=== PATIENT | male | born 1940 | race Caucasian/White ===

== ENCOUNTER → 2020-03-11 12:47 | Outpatient (BNVA) | payer MEDICARE, SELFPAY | PROVIDERS: PCP Internal Medicine; Visit Provider Hospitalist | DX: J98.11 Atelectasis (principal); J43.2 Centrilobular emphysema; J96.11 Chronic respiratory failure with hypoxia; R91.8 Other nonspecific abnormal finding of lung field | CPT/HCPCS: 99212 ==

== ENCOUNTER → 2020-10-10 14:11 | Outpatient (BNVA) | payer MEDICARE, SELFPAY | PROVIDERS: PCP Internal Medicine; Visit Provider Hospitalist | DX: J43.2 Centrilobular emphysema (principal); J98.11 Atelectasis; J96.11 Chronic respiratory failure with hypoxia; R91.8 Other nonspecific abnormal finding of lung field | CPT/HCPCS: 99212 ==

== ENCOUNTER → 2021-10-20 10:44 | Outpatient (BNVA) | payer MEDICARE, SELFPAY | PROVIDERS: PCP Internal Medicine; Visit Provider Hospitalist | DX: R91.8 Other nonspecific abnormal finding of lung field (principal); J96.11 Chronic respiratory failure with hypoxia; J98.11 Atelectasis; J43.2 Centrilobular emphysema | CPT/HCPCS: 99212 ==

== ENCOUNTER → 2022-05-27 09:51 | Outpatient (BNVA) | payer MEDICARE, SELFPAY | PROVIDERS: PCP Internal Medicine; Visit Provider Hospitalist | DX: J96.11 Chronic respiratory failure with hypoxia (principal); J43.2 Centrilobular emphysema; J98.11 Atelectasis; R91.8 Other nonspecific abnormal finding of lung field; Z87.891 Personal history of nicotine dependence; Z99.81 Dependence on supplemental oxygen | CPT/HCPCS: 99212 ==

== ENCOUNTER → 2022-08-26 13:06 | Outpatient (BNVA) | payer MEDICARE, SELFPAY | PROVIDERS: PCP Internal Medicine; Visit Provider Hospitalist | DX: J43.2 Centrilobular emphysema (principal); J98.11 Atelectasis; J96.11 Chronic respiratory failure with hypoxia; R91.8 Other nonspecific abnormal finding of lung field | CPT/HCPCS: 99212 ==

== ENCOUNTER 2023-04-07 12:27 | Outpatient (AMB) | payer MEDICARE, SELFPAY ==
--- NOTE | 2023-04-07 12:54 | A.OFFVIS_ITS ---
Intake Vital Signs 04/07/23 12:59 Height 6 ft Weight 195 lb BMI 26.4 BP 110/70 Blood Pressure Location Lt brachial Position Sitting Pulse 68 Pulse Oximetry (%) 89 L Oxygen Delivery Method Nasal Cannula Oxygen Flow Rate 2 Intake Visit Reasons: COPD Allergies vancomycin Allergy (Severe, Verified 08/26/22 13:19) Hearing HPI HPI Comments History of Present Illness Details The patient is a 82-year-old gentleman with known COPD with chronic respiratory failure on oxygen. He also has a history of aspiration pneumonia and some nodular changes primarily in the right base. Patient also has some interstitial lung disease active bases. His last CT scan of the chest was back in February 2018 which demonstrated findings stated above. Since we last spoke a finally get his portable oxygen concentrator. He is planning a trip to [place] at this time. 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 He denies any significant cough. He still having some issues with hoarseness due to his vocal cord paralysis. Has not had any issues with aspiration. In the meantime the patient continues to have some shortness of breath with activity. He continues his respiratory therapy as prescribed without any issues. Will plan to follow up in 6 months with [address] scan which should be 18 months from his prior. He did have a repeat CT scan of the chest that we personally reviewed sometime in July 2019. It demonstrates that it cavitary density appears to be stable in size when compared to 2019. Appears to have some increased interstitial changes at the bases. On examination he does have some crackles on the left base. Could be some atelectasis versus beginning of some pulmonary fibrosis. Will continue monitoring closely. 10/20/2021 the patient is here for a pulmonary follow-up visit. He has got the same. The patient has not had any lower respiratory infections. She continues to eat well without any evidence of any micro aspirations. This is a significant improvement for him. The patient continues on the Anoro. He takes a daily. Does not require her short-acting beta agonist. He does continue to uses oxygen. The portable oxygen concentrator has provided great portability outside of the home. He has provider better quality of life. in the meantime we did look at his last CT scan from 2020 which was compared to a CT scan from 2018 without any significant changes. Therefore based on the fact the patient is doing well will hold off on a CT scan this year and will have him get a chest x-ray. If his x-ray shows any worsening disease then I will go ahead and request a CT scan. Will try to hold off on further CT scans unless he has weaning worsening symptoms otherwise. 05/27/2022 the patient is here for a pulm onary follow-up visit. He was recently hospitalized at [facility] back in March. He had bilateral lower lobe pneumonia. He was also having acute on chronic hypoxic respiratory failure. She was treated with antibiotics. His sputum cultures were no growth today. His white count was indeed elevated. The patient was subsequently discharged. He continues uses oxygen. His oxygen has been dropping some but otherwise doing well. He did require rehabilitation prior to going home. The patient has been getting home PT at this time. We did review his last CT scan demonstrating bibasilar opacities and airspace disease right more than left. He has had history of aspiration pneumonia. His cough is also slightly above weeks I. He did have an Acapella valve at some point in the past but no longer available. At this point will going to focus on chest physical therapy by provide him a nebulizer and also provide him an Acapella valve in order for him to use at least once a day. He is also continue to use the oral daily. That is okay. He is going to monitor closely his oxygen. His if oxygen is not improving or getting worse he will call the office. Although I do have a repeat chest x-ray in a couple weeks. I did reassure the family that this will take at least a couple months to get better. 08/26/2022 the patient is here for a pulm onary follow-up visit. Overall the patient has been feeling better. He is back to his baseline oxygen. The patient was instructed to get stronger. He did get the nebulizer and also the Acapella valve although he has not been using it regularly. He does have some chest congestion right now on coughing. I explained to him the importance of mucus clearing. The patient also was aware that he needs to keep an eye on the color of the mucus thick consistency in the frequency of the mucus production. All these will be held till signs is she is developing an infection. Right now he has a baseline he did get his pneumonia shot which is very happy with. He is going to start performing his bronchopulmonary hygiene a little more regularly to help with mucus clearance. His last CT scan of the chest was back in March 2022. His chest x-ray in May demonstrated no acute disease. Therefore we will go ahead and repeat his CT scan in March 2019 for as long as doing well. 04/07/2023 the patient is here for a pulmo crisy follow-up visit. Overall the patient has been doing okay. The has been noticing he has been coughing more. He also is more hoarse. He has had issues with his vocal cord in the past. He went to [facility] and year and did have an intervention many years ago. Although at this point he has not planning to go back. The patient is monitoring closely his swallow specially with the vocal cord issue. The patient understands that he is high risk for aspiration. I did give him some instructions on swallowing techniques to minimize aspiration. The patient did have a CT scan of the chest that was personally by me. The patient does have a very stable looking right lower lobe cystic like lesion. Has not changed since 2020 and therefore this point will have to follow it so closely. The patient however was noted to be a little hypoxic on arrival on the 2 L pulse. This was after walking long haul that we have an office. And he was already tired and fatigued due to the walk. The patient did have a CT scan demonstrating some dilated pulmonary trunk suggesting some component of pulmonary hypertension. Explained to the family this could be resulting in the worsening hypoxia. We talked about dietary discretions being careful with sodium as needs to minimize volume to minimize the pulmonary vascular pressures. Otherwise, if continues to have issues with pulmonary hypertension and dyspnea could consider small dose of diuretics. [facility] Medical History (Updated 05/27/22 @ 10:21 by Mike Carpio MD) Pneumonia Pulmonary nodules Chronic respiratory failure COPD (chronic obstructive pulmonary disease) Atelectasis Social History (Updated 10/20/21 @ 11:14 by NAYELI Roy) Patient Tobacco Use Status: Former Tobacco user Tobacco use type: Cigarette Years Smoked: 54 years Review of Systems Const Denies night sweats ENT Denies change in voice, Denies lip swelling, Denies mouth pain, Reports nasal congestion, Reports nasal discharge and Denies tongue swelling Card Denies chest pain and Reports dyspnea on exertion Resp Reports cough and Reports dyspnea on exertion GI Denies abdominal pain Musc Denies no additional complaints Neuro Denies Neuro-related abnormal movements Psych Denies no additional complaints Tony/Lymph Denies easy bleeding and Denies lymphadenopathy Aller/Immun Denies lip swelling and Denies tongue swelling Physical Exam Vital Signs: Last Vital Signs Pulse 68 04/07/23 12:59 BP 110/70 04/07/23 12:59 Pulse Ox 89 L 04/07/23 12:59 Oxygen Delivery Method Nasal Cannula 04/07/23 12:59 Oxygen Flow Rate 2 04/07/23 12:59 BMI result Body Mass Index 26.4 Const General: alert HEENT General nose exam: Abnormal external nose present and Nasal discharge present Eyes Pupils: Equal, round and reactive pupils present Neck Neck: Yes normal visual inspection, Yes full ROM and Yes no lymphadenopathy Chest Chest palpation & inspection: normal inspection of the chest Resp Effort & Inspection: normal respiratory effort Auscultation: no rhonchi, no wheezes and diminished lung sounds Cardio Rate: regular rate Rhythm: regular rhythm Heart sounds: S1 normal heart sound present and S2 normal heart sound present GI Palpation (GI): Soft to palpation and nontender Auscultation: normal bowel sounds General: Yes no CVA tenderness Back/Spine/Pelvis Back: no CVA tenderness Skin General skin exam: rashes and/or lesions noted Neuro Cranial nerves: Yes Equal, round and reactive pupils present Assessment & Plan Assessment & Plan (1) Pulmonary nodules: Code(s): R91.8 - Other nonspecific abnormal finding of lung field Plan: CT chest for late summer/early Fall (2) Atelectasis: Code(s): J98.11 - Atelectasis Plan: coninnue exercise program (3) COPD (chronic obstructive pulmonary disease): Code(s): J44.9 - Chronic obstructive pulmonary disease, unspecified Qualifiers: COPD type: emphysema Emphysema type: centrilobular Qualified Code(s): J43.2 - Centrilobular emphysema Plan: conintue respiratory therapy (4) Chronic respiratory failure: Code(s): J96.10 - Chronic respiratory failure, unspecified whether with hypoxia or hypercapnia Qualifiers: Respiratory failure complication: hypoxia Qualified Code(s): J96.11 - Chronic respiratory failure with hypoxia Plan: continue POC Plan dysphagia precautions Continue Anoro daily continue nebulizer BID continue acapella BID continue portable oxygen supplementation with activity short-acting beta agonist as needed no futher serial CT chest follow-up in 1 year Coding Level of Care Code Est Pt Level 4 (07408) Diagnoses Pulmonary nodules R91.8 Atelectasis J98.11 Centrilobular emphysema J43.2 COPD type: emphysema Emphysema type: centrilobular Chronic respiratory failure with hypoxia J96.11 Respiratory failure complication: hypoxia Time Spent (min) 17
[2023-04-07 12:59] VITALS: BP 110/70; PULSE 68; O2SAT 89; BMI 26.4
== END 2023-04-07 13:16 | disposition home or self-care (01) ==
PROVIDERS: PCP Registered Nurse Rehabilitation; Visit Provider Hospitalist
DX: R91.8 Other nonspecific abnormal finding of lung field (principal); J98.11 Atelectasis; J43.2 Centrilobular emphysema; J96.11 Chronic respiratory failure with hypoxia
CPT/HCPCS: 99214

== ENCOUNTER → 2023-04-07 12:27 | Outpatient (BNVA) | payer MEDICARE, SELFPAY | PROVIDERS: PCP Internal Medicine; Visit Provider Hospitalist | DX: J43.2 Centrilobular emphysema (principal); J98.11 Atelectasis; J96.11 Chronic respiratory failure with hypoxia; R91.8 Other nonspecific abnormal finding of lung field | CPT/HCPCS: 99212 ==

== ENCOUNTER 2024-04-27 14:41 | Outpatient (AMB) | payer MEDICARE, SELFPAY ==
[2024-04-27 14:43] VITALS: BP 138/60; PULSE 72; O2SAT 89; BMI 24.1
--- NOTE | 2024-04-27 14:43 | MHC.OFFVIS ---
Vital Signs 04/27/24 14:43 Height 6 ft Weight 177 lb 7.554 oz BMI 24.1 BP 138/60 Blood Pressure Location Rt brachial Position Sitting Pulse 72 Pulse Source Pulse Oximeter Pulse Oximetry (%) 89 L Oxygen Delivery Method Nasal Cannula Oxygen Flow Rate 2 Intake Visit Reasons: COPD Allergies vancomycin Allergy (Severe, Verified 04/27/24 14:47) Hearing HPI Comments Details: The patient is a 83-year-old gentleman with known COPD with chronic respiratory failure on oxygen. He also has a history of aspiration pneumonia and some nodular changes primarily in the right base. Patient also has some interstitial lung disease active bases. His last CT scan of the chest was back in February 2018 which demonstrated findings stated above. Since we last spoke a finally get his portable oxygen concentrator. He is planning a trip to [place] at this time. 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 He denies any significant cough. He still having some issues with hoarseness due to his vocal cord paralysis. Has not had any issues with aspiration. In the meantime the patient continues to have some shortness of breath with activity. He continues his respiratory therapy as prescribed without any issues. Will plan to follow up in 6 months with [address] scan which should be 18 months from his prior. He did have a repeat CT scan of the chest that we personally reviewed sometime in July 2019. It demonstrates that it cavitary density appears to be stable in size when compared to 2019. Appears to have some increased interstitial changes at the bases. On examination he does have some crackles on the left base. Could be some atelectasis versus beginning of some pulmonary fibrosis. Will continue monitoring closely. 10/20/2021 the patient is here for a pulmonary follow-up visit. He has got the same. The patient has not had any lower respiratory infections. She continues to eat well without any evidence of any micro aspirations. This is a significant improvement for him. The patient continues on the Anoro. He takes a daily. Does not require her short-acting beta agonist. He does continue to uses oxygen. The portable oxygen concentrator has provided great portability outside of the home. He has provider better quality of life. in the meantime we did look at his last CT scan from 2020 which was compared to a CT scan from 2018 without any significant changes. Therefore based on the fact the patient is doing well will hold off on a CT scan this year and will have him get a chest x-ray. If his x-ray shows any worsening disease then I will go ahead and request a CT scan. Will try to hold off on further CT scans unless he has weaning worsening symptoms otherwise. 05/27/2022 the patient is here for a pulmonary follow-up visit. He was recently hospitalized at [facility] back in March. He had bilateral lower lobe pneumonia. He was also having acute on chronic hypoxic respiratory failure. She was treated with antibiotics. His sputum cultures were no growth today. His white count was indeed elevated. The patient was subsequently discharged. He continues uses oxygen. His oxygen has been dropping some but otherwise doing well. He did require rehabilitation prior to going home. The patient has been getting home PT at this time. We did review his last CT scan demonstrating bibasilar opacities and airspace disease right more than left. He has had history of aspiration pneumonia. His cough is also slightly above weeks I. He did have an Acapella valve at some point in the past but no longer available. At this point will going to focus on chest physical therapy by provide him a nebulizer and also provide him an Acapella valve in order for him to use at least once a day. He is also continue to use the oral daily. That is okay. He is going to monitor closely his oxygen. His if oxygen is not improving or getting worse he will call the office. Although I do have a repeat chest x-ray in a couple weeks. I did reassure the family that this will take at least a couple months to get better. 08/26/2022 the patient is here for a pulmonary follow-up visit. Overall the patient has been feeling better. He is back to his baseline oxygen. The patient was instructed to get stronger. He did get the nebulizer and also the Acapella valve although he has not been using it regularly. He does have some chest congestion right now on coughing. I explained to him the importance of mucus clearing. The patient also was aware that he needs to keep an eye on the color of the mucus thick consistency in the frequency of the mucus production. All these will be held till signs is she is developing an infection. Right now he has a baseline he did get his pneumonia shot which is very happy with. He is going to start performing his bronchopulmonary hygiene a little more regularly to help with mucus clearance. His last CT scan of the chest was back in March 2022. His chest x-ray in May demonstrated no acute disease. Therefore we will go ahead and repeat his CT scan in March 2019 for as long as doing well. 04/07/2023 the patient is here for a pulmonary follow-up visit. Overall the patient has been doing okay. The has been noticing he has been coughing more. He also is more hoarse. He has had issues with his vocal cord in the past. He went to [facility] and year and did have an intervention many years ago. Although at this point he has not planning to go back. The patient is monitoring closely his swallow specially with the vocal cord issue. The patient understands that he is high risk for aspiration. I did give him some instructions on swallowing techniques to minimize aspiration. The patient did have a CT scan of the chest that was personally by me. The patient does have a very stable looking right lower lobe cystic like lesion. Has not changed since 2020 and therefore this point will have to follow it so closely. The patient however was noted to be a little hypoxic on arrival on the 2 L pulse. This was after walking long haul that we have an office. And he was already tired and fatigued due to the walk. The patient did have a CT scan demonstrating some dilated pulmonary trunk suggesting some component of pulmonary hypertension. Explained to the family this could be resulting in the worsening hypoxia. We talked about dietary discretions being careful with sodium as needs to minimize volume to minimize the pulmonary vascular pressures. Otherwise, if continues to have issues with pulmonary hypertension and dyspnea could consider small dose of diuretics. 04/27/2024 the patient is here for a pulmonary follow-up visit. Since we last spoke the patient had been admitted to [facility] with pneumonia back in November. He did have a chest x-ray done which I personally reviewed demonstrating a left lower lobe consolidation. He was treated and then he was released. Subsequently January then developed COVID and has significant constitutional complaints. He went to [facility] where he was re admitted to the hospital. He had another x-ray done still demonstrating some residual changes to the left base but overall better. Just overall interstitial changes bilaterally. The patient has had multiple changes in his CT scan previously. View of his abnormal chest x-ray will request another CT scan. In the meantime we did review his pulmonary function studies that he had at [facility] recently. He appears to have a mild obstructive ventilatory defect in addition to a mild restrictive ventilatory defect. His more significant finding is the severe diffusion impairment of 24% predicted. Although, explained to the patient that if he is able to expand his lungs to normal the DLCO VA improves to 74% predicted. Therefore, explained to him the deep breathing exercises will be olivo in order for him to really improve his respiratory capacity. When he came into the office he was noted to be hypoxic, but, he tends to breathe through his mouth and forgets to activate the nasal cannula. [facility] Medical History (Updated 05/27/22 @ 10:21 by Mike Carpio MD) Pneumonia Pulmonary nodules Chronic respiratory failure COPD (chronic obstructive pulmonary disease) Atelectasis Social History Patient Tobacco Use Status: Former Tobacco user Tobacco use type: Cigarette Years Smoked: 54 years Review of Systems Const Denies night sweats ENT Denies change in voice, Denies lip swelling, Denies mouth pain, Reports nasal congestion, Reports nasal discharge and Denies tongue swelling Card Denies chest pain and Reports dyspnea on exertion Resp Reports cough and Reports dyspnea on exertion GI Denies abdominal pain Musc Denies no additional complaints Neuro Denies Neuro-related abnormal movements Psych Denies no additional complaints Tony/Lymph Denies easy bleeding and Denies lymphadenopathy Aller/Immun Denies lip swelling and Denies tongue swelling Physical Exam Vital Signs: Last Vital Signs Pulse 72 04/27/24 14:43 BP 138/60 04/27/24 14:43 Pulse Ox 89 L 04/27/24 14:43 Oxygen Delivery Method Nasal Cannula 04/27/24 14:43 Oxygen Flow Rate 2 04/27/24 14:43 BMI result Body Mass Index 24.1 Const General: alert HEENT General nose exam: Abnormal external nose present and Nasal discharge present Eyes Pupils: Equal, round and reactive pupils present Neck Neck: Yes normal visual inspection, Yes full ROM and Yes no lymphadenopathy Chest Chest palpation & inspection: normal inspection of the chest Resp Effort & Inspection: normal respiratory effort Auscultation: no rhonchi, no wheezes and diminished lung sounds Cardio Rate: regular rate Rhythm: regular rhythm Heart sounds: S1 normal heart sound present and S2 normal heart sound present GI Palpation (GI): Soft to palpation and nontender Auscultation: normal bowel sounds General: Yes no CVA tenderness Back/Spine/Pelvis Back: no CVA tenderness Skin General skin exam: rashes and/or lesions noted Neuro Cranial nerves: Yes Equal, round and reactive pupils present Assessment & Plan Assessment & Plan (1) Pulmonary nodules: Code(s): R91.8 - Other nonspecific abnormal finding of lung field Category: Medical Plan: CT chest for late summer/early Fall (2) Atelectasis: Code(s): J98.11 - Atelectasis Category: Medical Plan: coninnue exercise program (3) COPD (chronic obstructive pulmonary disease): Code(s): J44.9 - Chronic obstructive pulmonary disease, unspecified Category: Medical Qualifiers: COPD type: emphysema Emphysema type: centrilobular Qualified Code(s): J43.2 - Centrilobular emphysema Plan: conintue respiratory therapy (4) Chronic respiratory failure: Code(s): J96.10 - Chronic respiratory failure, unspecified whether with hypoxia or hypercapnia Category: Medical Qualifiers: Respiratory failure complication: hypoxia Qualified Code(s): J96.11 - Chronic respiratory failure with hypoxia Plan: continue POC Plan dysphagia precautions Continue Anoro daily continue nebulizer BID continue acapella BID continue portable oxygen supplementation with activity short-acting beta agonist as needed CT chest in 3-4 months online pulmonary rehab follow-up in 4-6 months Orders: Orders CT chest wo IV con 4 Months J18.9 - Pneumonia, unspecified organism, J98.11 - Atelectasis, R91.8 - Other nonspecific abnormal finding of lung field Coding Level of Care Code Est Pt Level 4 (94481) Complex EM visit Add On G2211 Diagnoses Pulmonary nodules R91.8 Atelectasis J98.11 Centrilobular emphysema J43.2 COPD type: emphysema Emphysema type: centrilobular Chronic respiratory failure with hypoxia J96.11 Respiratory failure complication: hypoxia Time Spent (min) 17
--- OUTSIDE RECORDS SUMMARY | 2024-04-27 16:52 | XMS_ITS | Continuity of Care Document ---
Author Organization [facility] Medicine Address [address] [place] [address]- Care Team Providers Care Ed Physicians Name Role Phone Jerrod PATEL, Catherine Primary Care Physician [place] [facility] [place]): 02/28/24 - 03/29/24 [facility] Medicine [address] [place] [id number] Encounter Type: Triage Allergies, Adverse Reactions, Alerts Substance Criticality Severity Reaction Reaction Severity Status vancomycin 1 Unable to assess criticality Persistent Severe Active 1hearing loss Immunizations Given and Recorded Vaccine Date Status Refusal Reason Influenza Virus Vaccine (oldterm) 11/29/23 Recorde d RSV vaccine preF3, recombinant 04/12/23 Recorded influenza virus vaccine, inactivated 01/01/23 Juan rded influenza virus vaccine, inactivated 12/18/21 Juan rded influenza virus vaccine, inactivated 12/09/20 Juan rded influenza virus vaccine, inactivated 1 11/19/19 Re corded influenza virus vaccine, inactivated 10/28/19 Juan rded influenza virus vaccine, inactivated 12/16/18 Juan rded influenza virus vaccine, inactivated 11/24/17 Juan rded influenza virus vaccine, inactivated 11/20/16 Juan rded SARS-CoV-2(COVID-19)mRNA-LNP vac([id number]) 01/01/23 Recorded [id number] 12y+ bivalent booster vax 08/09/22 Given [id number] 12y+ bivalent booster vax 01/08/22 Recorded pneumococcal 20-valent conjugate vaccine 08/09/22 Given SARS-CoV-2 mRNA (uvqxhrq-vkcq-fgzer) vax 06/18/21 Recorded pneumococcal 23-valent vaccine 05/12/21 Given SARS-CoV-2 (COVID-19) mRNA BNT-162b2 vac 12/09/20 Recorded SARS-CoV-2 (COVID-19) mRNA BNT-162b2 vac 04/29/20 Given SARS-CoV-2 (COVID-19) mRNA BNT-162b2 vac 04/08/20 Given Zoster Vaccine Live 05/16/19 Recorded Zoster Vaccine Live 01/23/19 Recorded Zoster Vaccine Live 2 06/27/08 Recorded tetanus-diphtheria toxoids (Td) 3 01/23/19 Recorde d tetanus-diphtheria toxoids (Td) 4 06/15/07 Recorde d tetanus/diphtheria/pertussis, acel(Tdap) 01/23/19 Recorded pneumococcal 13-valent vaccine 5 06/26/14 Recorded 1Result Comment: BIG Y 2Result Comment: 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/pharmacy #[id number], 183, cm, 01/06/24 12:37:00 EST, Height, 83, kg, 12/19/23 13:26:00 EDT, Dry Weight Start Date: 02/15/24 Status: Ordered Quantity: 90.0 Unit: tablet Repeat number: 2 CPAP Equipment See Instructions, # 1 each, Maintenance, ALL PAP SUPPLIES: TUBING, HEADGEAR, FULL FACE/NASAL MASK, WATER CHAMBER, AND FILTERS DX AIDA ([facility]) IRS, 11/02/13 10:29:26 AM EDT, Compound Start Date: 11/02/13 Status: Ordered Quantity: 1.0 Unit: each Repeat number: 1 escitalopram 20 mg oral tablet 1 tablet, By Mouth, Daily, # 90 tablet, 3 Refills, Maintenance, 05/31/23 11:12:00 AM EDT, [id number], 183, cm, 05/12/23 12:26:00 EDT, Height, 84, kg, 04/15/22 21:33:00 EST, Dry Weight Start Date: 05/31/23 Status: Ordered Quantity: 90.0 Unit: tablet Repeat number: 1 escitalopram 5 mg oral tablet 1 tablet, By Mouth, Daily, # 90 tablet, 3 Refills, Maintenance, 08/22/23 7:39:00 PM EDT, [id number], 183, cm, 05/12/23 12:26:00 EDT, Height, 84, kg, 04/15/22 21:33:00 EST, Dry Weight Start Date: 08/22/23 Status: Ordered Quantity: 90.0 Unit: tablet Repeat number: 4 for carpal tunnel for carpal tunnel, See Instructions, # 1 each, Refills 0, Tot. Refills 0, Maintenance, Carpal tunnel splint, 08/14/21 8:28:00 AM EDT, Supply Start Date: 08/14/21 Status: Ordered Quantity: 1.0 Unit: each Repeat number: 1 gabapentin 300 mg oral capsule 1, capsule, By Mouth, 4 times a day, # 450 capsule, Refills 3, Maintenance, 03/18/23 10:18:00 AM EST, Route to Pharmacy Electronically, [id number], 183, cm, 08/19/22 13:10:00 EDT, Height, 84, kg,04/15/22 21:33:00 EST, Dry Weight Start Date: 03/18/23 Status: Ordered Quantity: 450.0 Unit: capsule Repeat number: 1 mirtazapine 30 mg oral tablet 2 tablet, By Mouth, Daily at bedtime, # 180 tablet, 1 Refills, Maintenance, 01/18/24 8:41:00 AM EST, [id number], 183, cm, 01/06/24 12:37:00 EST, Height, 83, kg, 12/19/23 13:26:00 EDT, Dry Weight Start Date: 01/18/24 Status: Ordered Quantity: 180.0 Unit: tablet Repeat number: 1 omega-3 polyunsaturated fatty acids 200 mg oral capsule 1 capsule = 200 mg, By Mouth, Daily, # 90 capsule, 3 Refills, Maintenance, 08/24/23 10:49:00 AM EDT,Capsule, [id number], Partial fill upon patient request if the prescription is for a schedule II opioid drug., 183, cm, 08/24/23 10:22:00 EDT, Height, 84, kg, 04/15/22 21:33:00 EST, Dry Weight Start Date: 08/24/23 Stop Date: 08/18/24 Status: Ordered Quantity: 90.0 Unit: capsule Repeat number: 4 Indication: Pure hyperglyceridemia omeprazole 20 mg oral enteric coated capsule 1 capsule, By Mouth, 2 times a day, # 180 capsule, 1 Refills, Maintenance, 11/05/23 6:38:00 AM EDT, [id number], 183, cm, 10/27/23 13:14:00 EDT, Height, 84, kg, 04/15/22 21:33:00 EST, Dry Weight Start Date: 11/05/23 Status: Ordered Quantity: 180.0 Unit: capsule Repeat number: 1 oxyCODONE 5 mg oral tablet 5 mg, 1, tablet, By Mouth, 3 times a day, # 84 tablet, Refills 0, Tot. Refills 0, Maintenance, 03/20/24 5:32:00 PM EST, Route to Pharmacy Electronically, [id number], Partial fill upon patient request if the prescription is for a schedule II opioid drug., 182, cm, 02/26/24 8:10:00 EST, Height, 81.7, kg, 02/25/24 0:36:00 EST, Dry Weight Start Date: 03/20/24 Status: Ordered Quantity: 84.0 Unit: tablet Repeat number: 1 Robitussin CF Max Strength Honey Severe 650 mg-20 mg/20 mL oral liquid 20 mL, By Mouth, Every 4 hours, # 25 mL, 0 Refills, Acute 12/25/24 4:24:00 PM EDT, 12/26/23 4:23:00PM EDT, [id number], Partial fill upon patient request if the prescription is for a scheduleII opioid drug., 20 mL By Mouth Every 4 hours, 183, cm, 12/26/23 11:48:00 EDT, Height, 83, kg, 12/19/23 13:26:00 EDT, Dry Weight Start Date: 12/26/23 Stop Date: 12/25/24 Status: Ordered Quantity: 25.0 Unit: mL Repeat number: 1 tamsulosin 0.4 mg oral capsule 1, capsule, By Mouth, Daily, # 90 capsule, Refills 3, Tot. Refills 3, Maintenance, 10/27/23 1:28:00 PM EDT, Route to Pharmacy Electronically, [facility]/pharmacy #[id number], 183, cm, 10/27/23 13:14:00 EDT, Height, 84, kg, 04/15/22 21:33:00 EST, Dry Weight Start Date: 10/27/23 Status: Ordered Quantity: 90.0 Unit: capsule Repeat number: 4 Ventolin HFA 108 mcg/inh inhalation aerosol with adapter 2 puffs = 180 mcg, Inhalation, Every 4 hours, PRN Wheezing/Shortness of Breath, # 2 each, 1 Refills, Soft Stop, 01/09/21 1:19:00 PM EST, Inhaler, [id number], Partial fill upon patient request, 185, cm, 05/28/20 10:17:00 EDT, Height Start Date: 01/09/21 Stop Date: 07/08/21 Status: Ordered Quantity: 2.0 Unit: each Repeat number: 2 Indication: Chronic respiratory failure, unspecified whether with hypoxia or hypercapnia Problem List Condition Confirmation Course Effective Dates Status H ealth Status Informant Absolute impotence Confirmed Active Adenomatous polyp of colon Confirmed Active Mild cognitive impairment with memory loss Confirmed Active Back pain Confirmed Active Benign prostatic hypertrophy without outflow obstruction Confirmed Active Cellulitis, leg Confirmed Active Centriacinar emphysema Confirmed Active Chronic kidney disease, stage 3a 1 Confirmed Active Chronic pain syndrome Confirmed Active Chronic pain disorder Confirmed Active Chronic respiratory failure Confirmed Active COPD - Chronic obstructive pulmonary disease Confirmed Active CAD (coronary artery disease) Confirmed Active COVID-19 2 Confirmed 02/25/24 Active COVID-19 3 Confirmed 02/26/24 Active Deficiency of testosterone biosynthesis Confirmed Active Dependence on supplemental oxygen Confirmed Active Diverticulosis Confirmed Active Edema leg Confirmed Active Cerumen debris on tympanic membrane of right ear Confirmed Active Fatigue Confirmed Active Gastroesophageal reflux disease Confirmed Active Hyperlipidemia Confirmed Active Hypoxemia Confirmed Active Erectile dysfunction Confirmed Active Insomnia disorder Confirmed Active Laryngeal hemiplegia Confirmed Active Cavitary lesion of lung Confirmed Active Macrocytic anemia Confirmed Active Male hypogonadism Confirmed Active Memory changes Confirmed Active Mild depression Confirmed Active Mixed anxiety and depressive disorder Confirmed Active Numbness of fingers of both hands Confirmed Active AIDA (obstructive sleep apnea) Confirmed Active Vocal fold paralysis, unilateral Confirmed Active Medicare annual wellness visit, subsequent Confirmed Active Presbycusis Confirmed Active Venous insufficiency of leg Confirmed Active 1Per chart review meets GFR criteria 2Problem added by Discern Expert 3Problem added by Discern Expert Social History Social History Type Response Smoking Status Former smoker, quit more than 30 days ago entered on: 05/12/21 Sex Sex Representation Male (finding) Patient Care team information Care Team Personnel Name: Roseanna Britt RN Position: S RN Member Role: Primary Care Nurse Name: Catherine Elder MD Position: [facility] Physician - Primary Care Member Role: PCP Address: [address] [place] [address] Telecom: Name: Gela León RN Position: [facility] RN Member Role: Primary Care Nurse Name: Olya Mensah RN Position: S RN Member Role: Primary Care Nurse Care Team Related Persons Name: ALBERTO CONWAY Name: ALEJANDRA SERRANO Insurance Providers Guarantor name: LALI CONWAY Health Plan Information #: 1 Payer: MEDICARE PART B OUTPT Member Number: NA Policy Number: NA Group Number: NA Health Plan Information #: 2 Payer: MEDEX Member Number: NA Policy Number: NA Group Number: NA Health Plan Information #: 3 Payer: HMO BLUE IN NETWORK Member Number: NA Policy Number: NA Group Number: NA
--- OUTSIDE RECORDS SUMMARY | 2024-04-27 16:52 | XMS_ITS | Continuity of Care Document ---
Author Organization [facility] Medicine Address [address] [place] [address]- Care Team Providers Care Saddle Tree Stitcher Name Role Phone Jerrod PATEL, Catherine Primary Care Physician [place] [facility] [place] 03[place] [facility] Medicine [address] [place] [id number] Encounter Type: Triage Allergies, Adverse Reactions, [...] virus vaccine, inactivated 11/20/16 Juan rded SARS-CoV-2(COVID-19)mRNA-LNP vac([id number]) 01/01/23 Recorded [id number] 12y+ bivalent booster vax 08/09/22 Given [id number] 12y+ bivalent booster vax 01/08/22 Recorded pneumococcal 20-valent conjugate vaccine 08/09/22 Given SARS-CoV-2 mRNA (twhxyat-uiek-wfvto) vax 06/18/21 Recorded pneumococcal 23-valent vaccine 05/12/21 [...] Recorded 1Result Comment: BIG Y 2Result Comment: 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: [employer] Injectables Medications Anoro Ellipta 62.5 mcg-25 mcg/inh inhalation powder 1 puffs, Inhalation, Daily, # 30 each, 0 Refills, Maintenance, 01/15/20 1:13:00 PM EST, Powder, Partial fill upon patient request Start Date: 01/15/20 Status: Ordered Quantity: 30.0 Unit: each Repeat number: 1 atorvastatin 40 mg oral tablet 1 tablet, By Mouth, Daily, # 90 tablet, 1 Refills, Maintenance, 02/15/24 10:10:00 AM EST, [facility]/pharmacy #[id number], 183, cm, 01/06/24 12:37:00 EST, Height, 83, kg, 12/19/23 13:26:00 EDT, Dry Weight Start Date: 02/15/24 Status: Ordered Quantity: 90.0 Unit: tablet Repeat number: 2 CPAP Equipment See Instructions, # 1 each, Maintenance, ALL PAP SUPPLIES: TUBING, HEADGEAR, FULL FACE/NASAL MASK, WATER CHAMBER, AND FILTERS DX AIDA ([facility]) IRS, 11/02/13 10:29:26 AM EDT, Compound Start Date: 11/02/13 Status: Ordered Quantity: 1.0 Unit: each Repeat number: 1 escitalopram 20 mg oral tablet 1 tablet, By Mouth, Daily, # 90 tablet, 3 Refills, Maintenance, 05/31/23 11:12:00 AM EDT, [facility], 183, cm, 05/12/23 12:26:00 EDT, Height, 84, [...] EST, Route to Pharmacy Electronically, [id number], 183, cm, 08/19/22 13:10:00 EDT, Height, 84, kg,04/15/22 21:33:00 EST, Dry Weight Start Date: 03/18/23 Status: Ordered Quantity: 450.0 Unit: capsule Repeat number: 1 mirtazapine 30 mg oral tablet 2 tablet, By Mouth, Daily at bedtime, # 180 tablet, 1 Refills, Maintenance, 01/18/24 8:41:00 AM EST, [facility], 183, cm, 01/06/24 12:37:00 EST, Height, 83, [...] Maintenance, 11/05/23 6:38:00 AM EDT, [facility], 183, cm, 10/27/23 13:14:00 EDT, Height, 84, [...] 1:28:00 PM EDT, Route to Pharmacy Electronically, [facility]/pharmacy #[id number], 183, cm, 10/27/23 13:14:00 EDT, Height, 84, kg, 04/15/22 21:33:00 EST, Dry Weight Start Date: 10/27/23 Status: Ordered Quantity: 90.0 Unit: capsule Repeat number: 4 Ventolin HFA 108 mcg/inh inhalation aerosol with adapter 2 puffs = 180 mcg, Inhalation, Every 4 hours, PRN Wheezing/Shortness of Breath, # 2 each, 1 Refills, Soft Stop, 01/09/21 1:19:00 PM EST, Inhaler, [id number], Partial fill upon patient request, 185, cm, [...] Care Nurse Name: Catherine Elder MD Position: [facility] Physician - Primary Care Member Role: PCP Address: [address] [place] [address] Telecom: Name: Gela León RN Position: [facility] RN Member Role: Primary Care Nurse [...]
== END 2024-04-27 15:11 | disposition home or self-care (01) ==
PROVIDERS: PCP Registered Nurse Rehabilitation; Visit Provider Hospitalist
DX: R91.8 Other nonspecific abnormal finding of lung field (principal); J98.11 Atelectasis; J43.2 Centrilobular emphysema; J96.11 Chronic respiratory failure with hypoxia
CPT/HCPCS: 99214; G2211

== ENCOUNTER → 2024-04-27 14:41 | Outpatient (BNVA) | payer MEDICARE, SELFPAY | PROVIDERS: PCP Registered Nurse Rehabilitation; Visit Provider Hospitalist | DX: J43.2 Centrilobular emphysema (principal); J96.11 Chronic respiratory failure with hypoxia; J98.11 Atelectasis; R91.8 Other nonspecific abnormal finding of lung field; Z79.899 Other long term (current) drug therapy | CPT/HCPCS: 99212 ==

== ENCOUNTER 2024-10-26 09:45 | Outpatient (REF) | payer MEDICARE, SELFPAY ==
--- NOTE | ~2024-10-26 | XR_ITS ---
EXAMINATION: XR CHEST CLINICAL INFORMATION: J18.9 - Pneumonia, unspecified organism COMPARISON: None available. TECHNIQUE: 2 views of the chest were obtained. FINDINGS: The cardiac, hilar, and mediastinal contours are normal. Aortic mural calcification. Lungs are hyperaerated with increased fine interstitial markings diffusely, suggestive of COPD. Interstitial disease cannot be excluded given the appearance. There is biapical pleural parenchymal scarring. There is patchy right basilar opacification best appreciated on the lateral projection. There is no pneumothorax or pleural effusion. There is no focal osseous or soft tissue abnormality. There are degenerative changes throughout the spine with right convex scoliosis. There is upper lumbar hardware, incompletely imaged. XR/XR chest 2V IMPRESSION: 1. Findings suggesting COPD. Diffusely prominent fine interstitial markings may indicate underlying interstitial disease. 2. There is patchy opacity in the right base, for which pneumonia cannot be excluded. Electronically signed by: Alf Rogers MD 10/26/2024 10:42 AM EDT
== END 2024-10-26 09:46 | disposition home or self-care (01) ==
LOC: HO.XRAY 09:45
PROVIDERS: PCP Registered Nurse Rehabilitation; Visit Provider Hospitalist
DX: J43.2 Centrilobular emphysema (principal); J18.9 Pneumonia, unspecified organism; J98.11 Atelectasis; J96.10 Chronic respiratory failure, unspecified whether with hypoxia or hypercapnia; R91.8 Other nonspecific abnormal finding of lung field
CPT/HCPCS: 71046; 99212

== ENCOUNTER → 2024-10-26 09:45 | Outpatient (AMB) | payer MEDICARE, SELFPAY ==
--- NOTE | 2024-10-26 09:46 | A.OFFVIS_ITS ---
Vital Signs 10/26/24 09:47 Height 6 ft Weight 177 lb 7.554 oz BMI 24.1 BP 126/54 L Blood Pressure Location Lt brachial Position Sitting Pulse 76 Pulse Source Pulse Oximeter Pulse Oximetry (%) 86 L Oxygen Delivery Method Room Air Intake Visit Reasons: COPD Condenser Tube Tender Required: No Accompanied by: Spouse Allergies vancomycin Allergy (Severe, Verified 10/26/24 09:50) Hearing HPI Comments Details: The patient is a 84-year-old gentleman with known COPD with chronic respiratory failure on oxygen. He also has a history of aspiration pneumonia and some nodular changes primarily in the right base. Patient also has some interstitial lung disease active bases. His last CT scan of the chest was back in February 2018 which demonstrated findings stated above. Since we last spoke a finally get his portable oxygen concentrator. He is planning a trip to [place] at this time. 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 He denies any significant cough. He still having some issues with hoarseness due to his vocal cord paralysis. Has not had any issues with aspiration. In the meantime the patient continues to have some shortness of breath with activity. He continues his respiratory therapy as prescribed without any issues. Will plan to follow up in 6 months with a [address] scan which should be 18 months from his prior. He did have a repeat CT scan of the chest that we personally reviewed sometime in July 2019. It demonstrates that it cavitary density appears to be stable in size when compared to 2019. Appears to have some increased interstitial changes at the bases. On examination he does have some crackles on the left base. Could be some atelectasis versus beginning of some pulmonary fibrosis. Will continue monitoring closely. 10/20/2021 the patient is here for a pulmonary follow-up visit. He has got the same. The patient has not had any lower respiratory infections. She continues to eat well without any evidence of any micro aspirations. This is a significant improvement for him. The patient continues on the Anoro. He takes a daily. Does not require her short-acting beta agonist. He does continue to uses oxygen. The portable oxygen concentrator has provided great portability outside of the home. He has provider better quality of life. in the meantime we did look at his last CT scan from 2020 which was compared to a CT scan from 2018 without any significant changes. Therefore based on the fact the patient is doing well will hold off on a CT scan this year and will have him get a chest x-ray. If his x-ray shows any worsening disease then I will go ahead and request a CT scan. Will try to hold off on further CT scans unless he has weaning worsening symptoms otherwise. 05/27/2022 the patient is here for a pulmonary follow-up visit. He was recently hospitalized at [facility] back in March. He had bilateral lower lobe pneumonia. He was also having acute on chronic hypoxic respiratory failure. She was treated with antibiotics. His sputum cultures were no growth today. His white count was indeed elevated. The patient was subsequently discharged. He continues uses oxygen. His oxygen has been dropping some but otherwise doing well. He did require rehabilitation prior to going home. The patient has been getting home PT at this time. We did review his last CT scan demonstrating bibasilar opacities and airspace disease right more than left. He has had history of aspiration pneumonia. His cough is also slightly above weeks I. He did have an Acapella valve at some point in the past but no longer available. At this point will going to focus on chest physical therapy by provide him a nebulizer and also provide him an Acapella valve in order for him to use at least once a day. He is also continue to use the oral daily. That is okay. He is going to monitor closely his oxygen. His if oxygen is not improving or getting worse he will call the office. Although I do have a repeat chest x-ray in a couple weeks. I did reassure the family that this will take at least a couple months to get better. 08/26/2022 the patient is here for a pulmonary follow-up visit. Overall the patient has been feeling better. He is back to his baseline oxygen. The patient was instructed to get stronger. He did get the nebulizer and also the Acapella valve although he has not been using it regularly. He does have some chest congestion right now on coughing. I explained to him the importance of mucus clearing. The patient also was aware that he needs to keep an eye on the color of the mucus thick consistency in the frequency of the mucus production. All these will be held till signs is she is developing an infection. Right now he has a baseline he did get his pneumonia shot which is very happy with. He is going to start performing his bronchopulmonary hygiene a little more regularly to help with mucus clearance. His last CT scan of the chest was back in March 2022. His chest x-ray in May demonstrated no acute disease. Therefore we will go ahead and repeat his CT scan in March 2019 for as long as doing well. 04/07/2023 the patient is here for a pulmonary follow-up visit. Overall the patient has been doing okay. The has been noticing he has been coughing more. He also is more hoarse. He has had issues with his vocal cord in the past. He went to [facility] and year and did have an intervention many years ago. Although at this point he has not planning to go back. The patient is monitoring closely his swallow specially with the vocal cord issue. The patient understands that he is high risk for aspiration. I did give him some instructions on swallowing techniques to minimize aspiration. The patient did have a CT scan of the chest that was personally by me. The patient does have a very stable looking right lower lobe cystic like lesion. Has not changed since 2020 and therefore this point will have to follow it so closely. The patient however was noted to be a little hypoxic on arrival on the 2 L pulse. This was after walking long haul that we have an office. And he was already tired and fatigued due to the walk. The patient did have a CT scan demonstrating some dilated pulmonary trunk suggesting some component of pulmonary hypertension. Explained to the family this could be resulting in the worsening hypoxia. We talked about dietary discretions being careful with sodium as needs to minimize volume to minimize the pulmonary vascular pressures. Otherwise, if continues to have issues with pulmonary hypertension and dyspnea could consider small dose of diuretics. 04/27/2024 the patient is here for a pulmonary follow-up visit. Since we last spoke the patient had been admitted to [facility] with pneumonia back in November. He did have a chest x-ray done which I personally reviewed demonstrating a left lower lobe consolidation. He was treated and then he was released. Subsequently January then developed COVID and has significant constitutional complaints. He went to [facility] where he was re admitted to the hospital. He had another x-ray done still demonstrating some residual changes to the left base but overall better. Just overall interstitial changes bilaterally. The patient has had multiple changes in his CT scan previously. View of his abnormal chest x-ray will request another CT scan. In the meantime we did review his pulmonary function studies that he had at [facility] recently. He appears to have a mild obstructive ventilatory defect in addition to a mild restrictive ventilatory defect. His more significant finding is the severe diffusion impairment of 24% predicted. Although, explained to the patient that if he is able to expand his lungs to normal the DLCO VA improves to 74% predicted. Therefore, explained to him the deep breathing exercises will be olivo in order for him to really improve his respiratory capacity. When he came into the office he was noted to be hypoxic, but, he tends to breathe through his mouth and forgets to activate the nasal cannula. 10/26/2024 the patient is here for pulmonary follow-up visit. The patient has been having worsening cough in addition to shortness of breath. Back in January he did have COVID and was admitted to the hospital at [facility]. He did have a CT scan of the chest that I personally reviewed in April 2024 which demonstrates some chronic disease. The patient is continues uses oxygen with a portable oxygen concentrator that only goes up to 3 L pulse. Today came in more short of breath. He was running late so he went to go a little faster. Still his oxygen levels were in the low 80s. He took some time to recover. Then they increased to the high 80s. The patient is placed on regular oxygen continuous flow with an oxygen tank from [employer] and he was maintained on 3 L maintaining a pulse ox in the low 90s. Therefore, the patient needs to stay on continues flow for now. We did have him get a chest x-ray and he did demonstrate to have a small airspace disease suggesting pneumonia. Therefore, we started him on Vantin and doxycycline for 10 days. Also a prednisone taper for COPD exacerbation. Hopefully the patient started feeling better. He is going to monitor closely his oxygen needs. If his condition worsens he may need to go to the hospital for further care. Patient follow-up in 6-8 weeks. [facility] Medical History (Updated 05/27/22 @ 10:21 by Mike Carpio MD) Pneumonia Pulmonary nodules Chronic respiratory failure COPD (chronic obstructive pulmonary disease) Atelectasis Social History Patient Tobacco Use Status: Former Tobacco user Tobacco use type: Cigarette Years Smoked: 54 years Review of Systems Const Denies night sweats ENT Denies change in voice, Denies lip swelling, Denies mouth pain, Reports nasal congestion, Reports nasal discharge and Denies tongue swelling Card Denies chest pain, Reports dyspnea and Reports dyspnea on exertion Resp Reports cough, Denies pain on inspiration, Denies pain with cough, Reports dyspnea and Reports dyspnea on exertion GI Denies abdominal pain Musc Denies no additional complaints Neuro Denies Neuro-related abnormal movements Psych Denies no additional complaints Tony/Lymph Denies easy bleeding and Denies lymphadenopathy Aller/Immun Denies lip swelling and Denies tongue swelling Physical Exam Vital Signs: Last Vital Signs Pulse 76 10/26/24 09:47 BP 126/54 L 10/26/24 09:47 Pulse Ox 86 L 10/26/24 09:47 Oxygen Delivery Method Room Air 10/26/24 09:47 BMI result Body Mass Index 24.1 Const General: alert HEENT General nose exam: Abnormal external nose present and Nasal discharge present Eyes Pupils: Equal, round and reactive pupils present Neck Neck: Yes normal visual inspection, Yes full ROM and Yes no lymphadenopathy Chest Chest palpation & inspection: normal inspection of the chest Resp Effort & Inspection: normal respiratory effort Auscultation: no rhonchi, no wheezes and diminished lung sounds Cardio Rate: regular rate Rhythm: regular rhythm Heart sounds: S1 normal heart sound present and S2 normal heart sound present GI Palpation (GI): Soft to palpation and nontender Auscultation: normal bowel sounds General: Yes no CVA tenderness Back/Spine/Pelvis Back: no CVA tenderness Skin General skin exam: rashes and/or lesions noted Neuro Cranial nerves: Yes Equal, round and reactive pupils present Results Reviewed Results Reviewed: personally review CXR 11/26/24 with consolidation RLL Assessment & Plan Assessment & Plan (1) Pulmonary nodules: Code(s): R91.8 - Other nonspecific abnormal finding of lung field Category: Medical Plan: CT chest for late summer/early Fall (2) Atelectasis: Code(s): J98.11 - Atelectasis Category: Medical Plan: coninnue exercise program (3) COPD (chronic obstructive pulmonary disease): Code(s): J44.9 - Chronic obstructive pulmonary disease, unspecified Category: Medical Qualifiers: COPD type: emphysema Emphysema type: centrilobular Qualified Code(s): J43.2 - Centrilobular emphysema Plan: conintue respiratory therapy (4) Chronic respiratory failure: Code(s): J96.10 - Chronic respiratory failure, unspecified whether with hypoxia or hypercapnia Category: Medical Qualifiers: Respiratory failure complication: hypoxia Qualified Code(s): J96.11 - Chronic respiratory failure with hypoxia Plan: continue POC (5) Pneumonia: Code(s): J18.9 - Pneumonia, unspecified organism Category: Medical Plan start Vantin/Doxy x 8-10 days (ok to stop the keflex) Prednisone taper CXR with ?small pneumonia dysphagia precautions start BUdesonide nebs BID Continue Anoro daily continue nebulizer BID continue acapella BID change portable oxygen supplementation, needs continous flow, POC ->3l/min short-acting beta agonist as needed follow-up in 4-6 weeks Orders: Orders XR chest 2V 10/26/24 J18.9 - Pneumonia, unspecified organism Medications: New budesonide 0.5 mg (2 mL) inhalation DAILY 60 mL 11RF 30 days J44.9 - Chronic obstructive pulmonary disease, unspecified cefpodoxime must administer with a meal/food 200 mg PO BID 20 tabs 0RF doxycycline hyclate 100 mg PO BID 20 caps 0RF 10 days prednisone PO daily; Take 2 tabs daily x 5 days, then 1 tablet daily x 5 days 15 tabs 0RF 10 days Coding Level of Care Code Est Pt Level 5 (56470) Complex EM visit Add On G2211 Diagnoses Pulmonary nodules R91.8 Atelectasis J98.11 Centrilobular emphysema J43.2 COPD type: emphysema Emphysema type: centrilobular Chronic respiratory failure with hypoxia J96.11 Respiratory failure complication: hypoxia Pneumonia J18.9 Time Spent (min) 40
[2024-10-26 09:47] VITALS: BP 126/54; PULSE 76; O2SAT 86; BMI 24.1
--- OUTSIDE RECORDS SUMMARY | 2024-10-26 10:29 | XMS_ITS | Clinical Summary ---
Author Organization [facility] Address [address] [place], [place] [id number] Phone Care Team Providers Care Commercial Finance Analyst Name Role Phone Doyle Alves MD [facility] Kylee Rodriguez MD Primary Care Provi rashaun Allergies No known active allergies Medications nystatin (MYCOSTATIN) 100,000 unit/mL suspension Take 5 mL (500,000 Units total) by mouth 4 (four) times a day. Gargle and SPIT. 473 mL 0 10/31/19 16 Active Additional Information Patient not taking.Reported on 02/04/2016 ezetimibe (ZETIA) 10 mg tablet Dose: 10 MG; Form: Take 1 TABLET; Route: PO; Frequency: QD; Directions: Not available; Details: Dispense: Tablet(s); Date: 04/09/2015 04/09/19 16 Active budesonide-formote rol (SYMBICORT) 160-4.5 mcg/actuation inhaler Dose: 2 PUFF; Form: Not available; Route: INH; Frequency: BID; Directions: Not available; Details: Not available; Date: 04/09/2015 04/09/19 16 Active oxyCODONE 5 MG immediate release tablet Dose: 5 MG; Form: Take 1 TABLET; Route: PO; Frequency: Q6H; Directions: Not available; Details: Dispense: Tablet(s); Date: 04/09/2015 04/09/19 16 Active nabumetone (RELAFEN) 500 MG tablet Dose: 500 MG; Form: Take 1 TABLET; Route: PO; Frequency: QD; Directions: Not available; Details: Dispense: Tablet(s); Date: 04/09/2015 04/09/19 16 Active PEDI MVI NO.16 WITH FLUORIDE (MULTIVITAMINS WITH FLUORIDE ORAL) Dose: 1 TAB; Form: Not available; Route: PO; Frequency: QD; Directions: Not available; Details: Not available; Date: 04/09/2015 04/09/19 16 Active mirtazapine (REMERON) 15 MG tablet Dose: 7.5 MG; Form: Take 0.5 TABLET; Route: PO; Frequency: QD; Directions: Not available; Details: Dispense: Tablet(s); Date: 04/09/2015 04/09/19 16 Active magnesium gluconate (MAGONATE) 500 mg (27 mg elemental) Tab Dose: 500 MG; Form: Take 1 TABLET; Route: PO; Frequency: TID; Directions: Not available; Details: Dispense: Tablet(s); Date: 04/09/2015 04/09/19 16 Active gabapentin (NEURONTIN) 300 MG capsule Dose: 300 MG; Form: Take 1 CAPSULE; Route: PO; Frequency: TID; Directions: Not available; Details: Dispense: Capsule(s); Date: 04/09/2015 04/09/19 16 Active escitalopram oxalate (LEXAPRO) 10 MG tablet Dose: 10 MG; Form: Take 1 TABLET; Route: PO; Frequency: QD; Directions: Not available; Details: Dispense: Tablet(s); Date: 04/09/2015 04/09/19 16 Active clonazePAM (KLONOPIN) 0.25 MG disintegrating tablet Dose: 0.25 MG; Form: Take 1 TAB RAPDIS; Route: PO; Frequency: BID; Directions: Not available; Details: Dispense: Tablet(s); Date: 04/09/2015 04/09/19 16 Active CALCIUM CARBONATE/VITAMIN D3 (CALCIUM+D ORAL) Dose: 1 TAB; Form: Not available; Route: PO; Frequency: QD; Directions: Not available; Details: Not available; Date: 04/09/2015 04/09/19 16 Active aspirin 300 MG suppository Dose: 300 MG; Form: Take 1 SUPP.RECT; Route: NM; Frequency: QD; Directions: Not available; Details: Dispense: SUPP.RECT; Date: 04/09/2015 04/09/19 16 Active acetaminophen (TYLENOL) 325 mg tablet Dose: 325 MG; Form: Take 1 TABLET; Route: PO; Frequency: Not available; Directions: Not available; Details: Dispense: Tablet(s); Date: 04/09/2015 04/09/19 16 Active OMEPRAZOLE ORAL Take by mouth. Active nystatin (MYCOSTATIN) 100,000 unit/mL suspension Take 5 mL (500,000 Units total) by mouth 3 (three) times a day. 250 mL 06/03/19 17 Active Active Problems No known active problems Family History Medical History Relation Comments Colon cancer Paternal Aunt Relation Status Comments Paternal Aunt Social History Tobacco Use Types Packs/Day Years Used Date Smoking Tobacco: Former Cigarettes Smokeless Tobacco: Never Alcohol Use Standard Drinks/Week Comments Yes 0 (1 standard drink = 0.6 oz pur e alcohol) socially Education Answer Date Recorded Are you interested in more education? Not on saroj e 06/25/2022 Are you concerned about learning? Not on file 06/25/2022 No 06/25/2022 No 06/25/2022 Digital Access Answer Date Recorded No 07/24/2022 No 07/24/2022 No 07/24/2022 Reliable internet access at home? Not on file 07/24/2022 Device with a working camera? Not on file Sex and Gender Information Value Date Recorded Sex Assigned at Not on file Legal Sex Male 10:11 PM EDT Gender Identity Not on file Sexual Orientation Not on file Last Filed Vital Signs Vital Sign Reading Time Taken Comments Blood Pressure 116/76 05/08/2019 1:30 PM EDT Pulse - - Temperature - - Respiratory Rate - - Oxygen Saturation 94% 05/08/2019 1:00 PM EDT Inhaled Oxygen Concentration - - Weight 95.3 kg (210 lb) 06/02/2016 11:37 AM EDT Height 185.4 cm (6' 1 ) 06/02/2016 11:37 AM EDT Body Mass Index 27.71 06/02/2016 11:37 AM EDT Plan of Treatment Health Maintenance Due Date Last Done Comments DEPRESSION SCREENING 1952 PNEUMOCOCCAL VACCINES (50+ years) (2 of 2 - PPSV23) 06/27/2015 06/26/2014 RSV VACCINE (1 - 1-dose 75+ series) 2016 ZOSTER VACCINES (2 of 3) 07/11/2019 020, 01/23/2019, 06/27/2008 COVID-19 VACCINE (3 - 2023-2 5 season) 2023 04/29/2020, 04/08/2020 Adult Td,Tdap Booster 01/23/2029 01/23/2019 , 06/15/2007 HEPATITIS A VACCINES Aged Out No long er eligible based on patient's age to complete this topic HIB VACCINES Aged Out No longer eligi ble based on patient's age to complete this topic MENINGOCOCCAL VACCINES (ACWY) Aged Out No longer eligible based on patient's age to complete this topic MENINGOCOCCAL VACCINES (B) Aged Out N o longer eligible based on patient's age to complete this topic Medical Devices Not on file Insurance MEDICARE PART A & B [facility] MEDEX SUPPLEMENT MEDICARE PART A & B [employer] MEDEX SUPPLEMENT MEDICARE PART A & B [employer] MED[employer] SUPPLEMENT MEDICARE PART A & B Member Subscriber Plan / Payer (Ef fective 2006-Present) Name:Willie De Souza Member ID:[id number] Relation to Subscriber:Self Name:Ap Willie Khai Subscriber ID:[id number] Payer ID:[id number] Group ID:Not on file Type:Medicare Address: [employer] [address] [place] [phone] [employer] MEDEX SUPPLEMENT MEDICARE PART A & B [employer] MED[employer] SUPPLEMENT MEDICARE PART A & B [employer] MED[employer] SUPPLEMENT MEDICARE PART A & B [employer] MED[employer] SUPPLEMENT MEDICARE PART A & B [employer] MED[employer] SUPPLEMENT MEDICARE PART A & B [employer] MED[employer] SUPPLEMENT MEDICARE PART A & B [facility] MEDEX SUPPLEMENT MEDICARE PART A & B Member Subscriber Plan / Payer ( fective 2006-Present) Name:Willie De Souza Member ID:[id number] Relation to Subscriber:Self Name:Willie De Souza Subscriber ID:[id number] Payer ID:[id number] Group ID:Not on file Type:Medicare Address: [employer] [address] [place] [phone] [employer] MEDEX SUPPLEMENT MEDICARE PART A & B [employer] MED[employer] SUPPLEMENT MEDICARE PART A & B [employer] MED[employer] SUPPLEMENT MEDICARE PART A & B [employer] MED[employer] SUPPLEMENT MEDICARE PART A & B [employer] MED[employer] SUPPLEMENT MEDICARE PART A & B [employer] MED[employer] SUPPLEMENT MEDICARE PART A & B [employer] MED[employer] SUPPLEMENT MEDICARE PART A & B [employer] MEDEX SUPPLEMENT Care Teams Commercial Finance Analyst Relationship Specialty Start Date End Date Kylee Hoffman MD [address] [place] [phone] PCP - General Internal Medicine 05/08/19 Doyle Alves MD 04/18/19 Additional Source Comments The information contained in this document represents components of the legal health record. It is not the complete legal health record.[facility]
== END ==
LOC: HO.HPS 09:46
PROVIDERS: PCP Registered Nurse Rehabilitation; Visit Provider Hospitalist
DX: R91.8 Other nonspecific abnormal finding of lung field (principal); J98.11 Atelectasis; J43.2 Centrilobular emphysema; J96.11 Chronic respiratory failure with hypoxia; J18.9 Pneumonia, unspecified organism
CPT/HCPCS: 99215; G2211

== ENCOUNTER → 2024-10-26 10:27 | Outpatient (BNV) | payer MEDICARE, SELFPAY | PROVIDERS: PCP Registered Nurse Rehabilitation; Visit Provider Radiology Diagnostic Radiology | DX: J44.9 Chronic obstructive pulmonary disease, unspecified (principal) | CPT/HCPCS: 71046 ==